=== PATIENT | male | born 1955 | race Caucasian/White ===

== ENCOUNTER 2016-07-08 09:39 | Emergency (ER) | payer BC ==
[2016-07-08] MEDS ORDERED: ALBUTEROL/IPRATROPIUM 2.5/0.5 MG 3 ML/EACH DOSE ONE (10:19)
[2016-07-08] MEDS ORDERED: DEXAMETHASONE SOD PHOS 10 MG/1 ML VIAL ONE (10:20)
[2016-07-08] MEDS ORDERED: ASPIRIN CHEWTAB 81 MG TABLET ONE (10:20)
[2016-07-08 10:45] LABS: TROPONIN I < 0.01 ng/ml (0.0-0.06)
[2016-07-08 10:49] LABS: ALB/GLOB RATIO 1.6 (>1.0); ALBUMIN 4.4 gm/dL (3.5-5.7); CALCIUM 9.7 mg/dL (8.6-10.3)
--- NOTE | 2016-07-08 10:55 | RAD ---
CHEST 2 VIEWS HISTORY: Shortness of breath. Frontal and lateral chest radiographs dated 07/08/2016. COMPARISON: None. FINDINGS: FOCAL AIRSPACE OPACITY: No gross airspace consolidation. PLEURAL EFFUSION: None. CARDIOMEDIASTINAL SILHOUETTE: Nonenlarged. Calcification along the inferior cardiac silhouette. PNEUMOTHORAX: None identified. OSSEOUS STRUCTURES: Moderate thoracic disc degeneration. IMPRESSION: No acute cardiopulmonary process noted. Calcification along the inferior aspect of the cardiac silhouette, which may reflect dystrophic cardiac or pericardial calcification. Thoracic spondylosis.
== END 2016-07-08 11:23 | disposition home or self-care (01) ==
LOC: ED 09:39
DX: J44.9 Chronic obstructive pulmonary disease, unspecified (principal); I11.9 Hypertensive heart disease without heart failure; F17.210 Nicotine dependence, cigarettes, uncomplicated; Z79.82 Long term (current) use of aspirin
CPT/HCPCS: 83880; 85379; 82550; 82553; 80053; 84484; 71020; 94640; 94664; 99283 ×2; 96374; A9270; J1100